=== PATIENT | male | born 1990 | race African-American/Black ===

== ENCOUNTER 2018-02-24 21:46 | Emergency (ER) | payer OTHER ==
[2018-02-24] MEDS ORDERED: SODIUM CHLORIDE 0.9% 1,000 ML IV STA ×2 (22:31)
[2018-02-24] MEDS ORDERED: RX INFO: IV CONTRAST WAS GIVEN 1 EACH MISC MISCELLANE PRN (22:31)
[2018-02-24 22:42] LABS: Appearance,Urine Clear (Clear); Bilirubin,Urine Negative (Negative); Blood,Urine Negative (Negative); Color,Urine Yellow; Glucose,Urine (UA) Negative (Negative); Ketones,Urine Negative (Negative); Leukocyte Esterase,Urine Negative (Negative); Nitrite,Urine Negative (Negative); PH, Urine 5.5 (5.0-8.0); Protein,Urine Trace (Negative); Specific Gravity,Urine 1.027 (1.001-1.035); Urobilinogen,Urine <2.0 mg/dL (<2.0)
[2018-02-24 22:53] LABS: HCT 41.4 % (39.0-53.0); MCH 30.6 pg (25.0-35.0); MCHC 33.7 g/dL (31.0-37.0); MCV 90.8 fL (80.0-100.0); Platelet Count 205 k/uL (150-450); RBC 4.56 m/uL (4.30-5.90); RDW 11.6 % (11.5-15.5); WBC 4.7 k/uL (3.8-10.6)
[2018-02-24 23:08] LABS: ALT 24 U/L (21-72); AST 30 U/L (17-59); Albumin 4.3 g/dL (3.5-5.0); Alkaline Phosphatase 37 U/L (38-126); Anion Gap 12 mmol/L; Blood Urea Nitrogen 15 mg/dL (9-20); C Reactive Protein <5.0 mg/L (<10.0); Calcium 9.7 mg/dL (8.4-10.2); Carbon Dioxide 25 mmol/L (22-30); Chloride 105 mmol/L (98-107); Glucose 87 mg/dL (74-99); Sodium 142 mmol/L (137-145); Total Bilirubin 0.6 mg/dL (0.2-1.3)
--- NOTE | 2018-02-24 23:57 | CT ---
EXAMINATION TYPE: CT abdomen pelvis w con DATE OF EXAM: 02/24/2018 COMPARISON: NONE HISTORY: Generalized abd pain X1 week with LT side scrotal hernia CT DLP: 488.00 mGycm Automated exposure control for dose reduction was used. TECHNIQUE: Helical acquisition of images was performed from the lung bases through the pelvis. CONTRAST: Performed without Oral Contrast and with IV Contrast, patient injected with 100 mL of Isovue 300. FINDINGS: Lung bases are clear. There is no pleural effusion. There is no pericardial effusion. Liver spleen pancreas gallbladder appear normal. Bile ducts are not dilated. There is no adrenal mass . Kidneys show satisfactory contrast opacification. There is no hydronephrosis. I see no intestinal w all thickening. There are no dilated loops. Exam is limited by the lack of oral contrast. Bladder dis tends smoothly. I see no pelvic mass. There is slight increased density in the left inguinal region t hat is consistent with a left side scrotal hernia. Appendix is not seen. There is no sign of appendic itis. The bony structures are intact. There is no sign of free air. Lumbar spine appears normal. IMPRESSION: SLIGHT INCREASED DENSITY IN THE LEFT INGUINAL PUDENDAL REGION CONSISTENT WITH A SMALL SCROTAL HERNIA. NO SIGN OF APPENDICITIS. APPENDIX COULD BE POSTERIOR. IT IS DIFFICULT TO EVALUATE THE BOWEL BECAUSE OF THE LACK OF ANY ABDOMINAL FAT AND ORAL CONTRAST. NO SIGN OF ACUTE ABDOMEN AND PELVIS.
--- NOTE | 2018-02-25 00:31 | US ---
EXAMINATION TYPE: US scrotum with doppler. Grayscale and color Doppler Duplex imaging performed of t dahiana scrotum. DATE OF EXAM: 02/25/2018 COMPARISON: NONE CLINICAL HISTORY: L sided scrotal hernia. PainLimited exam due to probe not working properly. EXAM MEASUREMENTS: TESTICLES: Right Testicle: 3.2 x 2.5 x 5.3 cm Left Testicle: 3.69 x 2.1 x 4.1 cm EPIDIDYMIS HEAD: Right Epididymis: .7 x .6 x .7 cm Left Epididymis: .8 x .7 x .7 cm Doppler performed to assess for testicular vascularity; good bilateral color flow and waveforms are s een. There is no evidence of testicular torsion. Presence of hydroceles: Appears to be mild amount of fluid seen bilaterally. Presence of varicoceles: Appears to be on the left. Bilateral mild amount of fluid visualized. Appears to be left varicocele. Bilateral normal color dopp ler seen. IMPRESSION: No testicular torsion or mass. Mild bilateral hydroceles.
--- NOTE | 2018-02-25 00:51 | ED ---
General Adult HPI - General Chief complaint: Urogenital Stated complaint: hernia Time Seen by Provider: 02/24/18 22:17 Source: patient Mode of arrival: ambulatory Limitations: no limitations - History of Present Illness Initial comments: 28 years old male complaining about left-sided hernia he said he has this for about 2 years now is getting better gradually and it's more painful some days he has a hard time even ambulating because he is so big and then it shrinks in size with rest. He denies any abdominal pain no nausea no vomiting and he has been moving his bowels pretty regular on his most recent bowel movement was this morning. Otherwise is healthy swelling in the scrotum is mostly on the left side it also gets worse and then he goes back to normal no history of trauma no fever no chills he hasn't seen any physician since 2010 and now he said his appetite appetite is been diminished for the last week and so - Related Data Home Medications Medication Instructions Recorded Confirmed Acetaminophen/Diphenhydramine 2 tab PO HS PRN 02/24/18 02/24/18 [Tylenol PM 500-25mg] Allergies Allergy/AdvReac Type Severity Reaction Status Date / Time No Known Allergies Allergy Verified 02/24/18 22:02 Review of Systems ROS Statement: Those systems with pertinent positive or pertinent negative responses have been documented in the HPI. ROS Other: All systems not noted in ROS Statement are negative. Past Medical History Past Medical History: No Reported History History of Any Multi-Drug Resistant Organisms: None Reported Past Surgical History: No Surgical Hx Reported Past Psychological History: No Psychological Hx Reported Smoking Status: Current every day smoker Past Alcohol Use History: None Reported Past Drug Use History: None Reported General Exam - General Exam Comments Initial Comments: General: The patient is awake and alert, in no distress, and does not appear acutely ill. Skin: Skin is warm and dry and no rashes or lesions are noted. Eye: Pupils are equal, round and reactive to light, extra-ocular movements are intact; there is normal conjunctiva bilaterally. Ears, nose, mouth and throat: There are moist mucous membranes and no oral lesions. Neck: The neck is supple, there is no tenderness or JVD. Cardiovascular: There is a regular rate and rhythm. No murmur, rub or gallop is appreciated. Respiratory: To auscultation bilateral, no wheezing no rhonchi no distress respiratory feldman noticed Gastrointestinal: Soft, non-distended, non-tender abdomen without masses or organomegaly noted. There is no rebound or guarding present. Bowel sounds are unremarkable. Wrist large scrotal hernia when he stands up and is easily reducible when he lays supine Back: There is no tenderness to palpation in the midline. There is no obvious deformity. Musculoskeletal: Normal ROM, no tenderness, There is no pedal edema. There is no calf tenderness or swelling. No cords were appreciated. Neurological: CN II-XII intact, Cranial nerves III through XII are intact. There are no obvious motor or sensory deficits. Coordination appears grossly intact. Speech is normal. Psychiatric: Cooperative, appropriate mood & affect, normal judgment. Limitations: no limitations Course Vital Signs 02/24/18 02/25/18 21:49 00:10 Temperature 99 F 98.2 F Pulse Rate 108 H 76 Respiratory 16 16 Rate Blood Pressure 141/67 137/60 O2 Sat by Pulse 97 98 Oximetry was reassessed, CBC, comp his metabolic panel, urinalysis, CT of the abdomen and SCROTUM ARE UNREMARKABLE HIM A BASED ON THE EXAMINATION HE DOES HAVE A LARGE INGUINAL HERNIA/SCROTAL HERNIA BUT IS ABSOLUTELY REDUCIBLE THERE ARE NO SIGNS OF BOWEL OBSTRUCTION THERE IS NO NAUSEA NO VOMITING HE BEEN MOVING HIS BOWELS PATIENT BE REFERRED TO CALL HER SURGEON DR. JAKI INFANTE IN THE PATIENT'S IS AGREEABLE TO SEE DR. JAKI INFANTE OUTPATIENT Medical Decision Making - Lab Data Result diagrams: 02/24/18 22:43 02/24/18 22:43 Lab Results 02/24/18 02/24/18 02/24/18 Range/Units 22:15 22:43 22:43 WBC 4.7 (3.8-10.6) k/uL RBC 4.56 (4.30-5.90) m/uL Hgb 14.0 (13.0-17.5) gm/dL Hct 41.4 (39.0-53.0) % MCV 90.8 (80.0-100.0) fL MCH 30.6 (25.0-35.0) pg MCHC 33.7 (31.0-37.0) g/dL RDW 11.6 (11.5-15.5) % Plt Count 205 (150-450) k/uL Sodium 142 (137-145) mmol/L Potassium 4.0 (3.5-5.1) mmol/L Chloride 105 (98-107) mmol/L Carbon Dioxide 25 (22-30) mmol/L Anion Gap 12 mmol/L BUN 15 (9-20) mg/dL Creatinine 0.90 (0.66-1.25) mg/dL Est GFR (CKD-EPI)AfAm >90 (>60 ml/min/1.73 sqM) Est GFR (CKD-EPI)NonAf >90 (>60 ml/min/1.73 sqM) Glucose 87 (74-99) mg/dL Calcium 9.7 (8.4-10.2) mg/dL Total Bilirubin 0.6 (0.2-1.3) mg/dL AST 30 (17-59) U/L ALT 24 (21-72) U/L Alkaline Phosphatase 37 L (38-126) U/L C-Reactive Protein <5.0 (<10.0) mg/L Total Protein 7.0 (6.3-8.2) g/dL Albumin 4.3 (3.5-5.0) g/dL Urine Color Yellow Urine Appearance Clear (Clear) Urine pH 5.5 (5.0-8.0) Ur Specific [place] 1.027 (1.001-1.035) Urine Protein Trace H (Negative) Urine Glucose (UA) Negative (Negative) Urine Ketones Negative (Negative) Urine Blood Negative (Negative) Urine Nitrite Negative (Negative) Urine Bilirubin Negative (Negative) Urine Urobilinogen <2.0 (<2.0) mg/dL Ur Leukocyte Esterase Negative (Negative) Disposition Clinical Impression: Hernia, inguinal, Scrotal hernia Disposition: HOME SELF-CARE Condition: Good Instructions: Inguinal Hernia (ED) Additional Instructions: Tylenol or Motrin for the discomfort, avoid heavy lifting pushing or pulling Is patient prescribed a controlled substance at d/c from ED?: No If prescribed controlled substance>3 days was MAPS reviewed?: No When asked, does pt state using other controlled substances?: No Referrals: None,Stated [Primary Care Provider] - 1-2 days
[2018-02-25 01:14] VITALS: BP 134/74; PULSE 78; RESP 18; TEMP 97
== END 2018-02-25 01:16 | disposition home or self-care (01) ==
LOC: EC 21:46
DX: K40.90 Unilateral inguinal hernia, without obstruction or gangrene, not specified as recurrent (principal); F17.200 Nicotine dependence, unspecified, uncomplicated
CPT/HCPCS: 36415; 80053; 85027; 86140; 81003; 74177; 99284; 96360; 96361; Q9967; 76870; 87086; 93975